=== PATIENT | female | born 1950 | race Caucasian/White ===

== ENCOUNTER 2016-08-19 15:54 | Emergency (ER) | payer MEDICARE, OTHER ==
[~2016-08-19 15:54] MED LIST: ABILIFY2 PO; AUG875 PO; BACDS PO; CAP25 PO; CRANBERRY JUICE; CRANBERRY JUICE PO; DSS PO; FLORASTOR250 MG PO; GOLD BOND POWDER TOP; GOLD BOND TOP; HYDROCHLOROT25 MG PO; KDUR20 PO; KERI TOP; KLOR-CON M2020 MEQ PO; L20 PO; LEVOTHYROXIN137 MCG PO; LOP25 PO; MIRALAXPKT PO; MULTI-VIT/F1 OR; MULTIVIT/MIN PO; PATANOL OPH; PEG PO; PERIDEX PO; PRILO PO; PROTONIX PO; SYN112 PO; T PO; THERA DERM TOP; TOF25 PO; TYLENOL ARTH650 MG PO; ULTRAM50 PO; VITAMIN D1000 UNI1 PO; VITAMIN D31000 UNIT PO; ZOL100 PO; [UNRECOGNIZED DRUG - MIXTURE]; [UNRECOGNIZED DRUG - OTHER] TOP
== END 2016-08-19 19:50 | disposition home or self-care (01) ==
LOC: ER 15:54
DX: S00.03XA Contusion of scalp, initial encounter (principal); Z88.8 Allergy status to other drugs, medicaments and biological substances; Z79.899 Other long term (current) drug therapy; W19.XXXA Unspecified fall, initial encounter
CPT/HCPCS: 70450; 99284

== ENCOUNTER 2016-10-23 16:29 | Emergency (ER) | payer MEDICARE, OTHER | END 2016-10-23 19:55 | disposition home or self-care (01) | LOC: ER 16:29 | PROC: 0CQ0XZZ Repair Upper Lip, External Approach (ICD-10-PCS; principal; 2016-10-23) | DX: S01.511A Laceration without foreign body of lip, initial encounter (principal); S00.93XA Contusion of unspecified part of head, initial encounter; I10 Essential (primary) hypertension; E03.9 Hypothyroidism, unspecified; Z88.8 Allergy status to other drugs, medicaments and biological substances; Z79.899 Other long term (current) drug therapy; W18.30XA Fall on same level, unspecified, initial encounter | CPT/HCPCS: 70450; 99284 ==